=== PATIENT | male | born 1995 | race Caucasian/White ===

== ENCOUNTER 2020-06-06 19:30 | Emergency (ER) | payer OTHER ==
--- OUTSIDE RECORDS SUMMARY | 2020-06-06 19:32 | XMS REPORT | Continuity of Care Document ---
:1995 Author Organization [facility] t Address [address] [place] [address] Care Team Providers Name Role Phone Benitez Muñiz MD. Primary Care Physician Problems This patient has no known problems. Allergies, Adverse Reactions, Alerts This patient has no known allergies or adverse reactions. Family History Family Member Diagnosis Comments Start Date Stop Date Source Natural father No Known Problems Rishabh Madrigal Natural mother No Known Problems Rishabh Madrigal Paternal grandmother Cancer [place] Social History Social Habit Start Date Stop Date Quantity Comments Source Sex Assigned At [place] [facility] Alcohol intake 2016-05-26 2016-05-26 Current drinker [place] 00:00:00 00:00:00 of alcohol (finding) Tobacco Comment 2016-05-26 2016-05-26 Started 16 yo [place] [facility] 00:00:00 00:00:00 and smokes 1 ppd on Fri/Sat Alcohol Comment 2016-05-26 2016-05-26 Fri/Sat 01/11 [place] [facility] 00:00:00 00:00:00 beers each time Smoking Status Start Date Stop Date Source Smoker, current status unknown 2016-05-26 00:00:00 [place] [facility] Medications This patient has no known medications. Procedures This patient has no known procedures. Plan of Care Planned Activity Planned Date Details Comments Source Future Scheduled 2020-03-02 INFLUENZA VACCINE [facility] [facility] Test 00:00:00 [code = INFLUENZA VACCINE] Results This patient has no known results.
--- OUTSIDE RECORDS SUMMARY | 2020-06-06 19:32 | XMS REPORT | Clinical Summary ---
:1995 Author Organization [facility] Address [address] [place] [id number] Care Team Providers Name Role Phone Danita Muñiz MD Primary Care Provider Allergies No Known Active Allergies Medications No known medications Active Problems Not on file Medical History Medical History Date Comments Wrist fracture Family History Medical History Relation Name Comments No Known Problems Father No Known Problems Mother Cancer Paternal Grandmother ? tupe Relation Name Status Comments Father Alive Mother Alive Paternal Grandmother Social History Tobacco Use Types Packs/Day Years Used Date Smoker, Current Status Unknown Comments: Started 16 yo and smokes 1 ppd on Fri/Sat Alcohol Use Drinks/Week oz/Week Comments Yes Fri/Sat 6/12 bee rs each time Sex Assigned at Date Recorded Not on file Last Filed Vital Signs Not on file Plan of Treatment Health Maintenance Due Date Last Done Comments INFLUENZA VACCINE 03/02/2020 Results Not on fileafter 06/06/2019 (Home) [address] [place] [address] Advance Directives For more information, please contact: [phone] Type Date 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
--- NOTE | 2020-06-06 21:10 | RAD REPORT ---
EXAM DESCRIPTION: RAD - Hand Right 3 View - 06/06/2020 8:59 pm CLINICAL HISTORY: Pain;Smash injury COMPARISON: No comparisons FINDINGS: Oblique fracture involves the distal shaft of the fifth metacarpal. Moderate adjacent soft tissue swelling.
--- NOTE | 2020-06-06 21:35 | EDPHYS ---
Physician Documentation [facility] Name: Bill Rodriguez Age: 25 yrs Sex: Male : 1995 Arrival Date: 06/06/2020 Time: 19:36 Bed 6 Private MD: ED Physician Lev Mart HPI: 06/06 22:09 This 25 yrs old Male presents to ER via Ambulatory with complaints of Hand snw Injury. 22:09 The patient or guardian reports a contusion, injury, pain, swelling. The complaints snw affect the dorsum of right hand. Context: resulted from a direct blow, pt was playing basketball and someone's elbow struck pt's right hand and pushed his 4th and 5th fingers back.. Onset: The symptoms/episode began/occurred suddenly, just prior to arrival. Associated signs and symptoms: The patient has no apparent associated signs or symptoms. Severity of symptoms: At their worst the symptoms were moderate. The patient has not experienced similar symptoms in the past. It is unknown whether or not the patient has recently seen a physician. Historical: - Allergies: 19:39 No Known Allergies; jd3 - Home Meds: 19:39 None [Active]; jd3 - PMHx: 19:39 None; jd3 - PSHx: 19:39 left arm; jd3 - Immunization history:: Adult Immunizations up to date. - Social history:: Smoking status: Patient denies any tobacco usage or history of. ROS: 22:09 Constitutional: Negative for fever, chills, and weight loss, Eyes: Negative for injury, snw pain, redness, and discharge, ENT: Negative for injury, pain, and discharge, Neck: Negative for injury, pain, and swelling, Cardiovascular: Negative for chest pain, palpitations, and edema, Respiratory: Negative for shortness of breath, cough, wheezing, and pleuritic chest pain, Abdomen/GI: Negative for abdominal pain, nausea, vomiting, diarrhea, and constipation, Back: Negative for injury and pain, : Negative for injury, bleeding, discharge, and swelling, Skin: Negative for injury, rash, and discoloration, Neuro: Negative for headache, weakness, numbness, tingling, and seizure, Psych: Negative for depression, anxiety, suicide ideation, homicidal ideation, and hallucinations. 22:09 MS/extremity: Positive for injury or acute deformity, contusion, pain, swelling, tenderness, of the dorsum of right hand. Exam: 22:08 Constitutional: This is a well developed, well nourished patient who is awake, alert, snw and in no acute distress. Head/Face: Normocephalic, atraumatic. Eyes: Pupils equal round and reactive to light, extra-ocular motions intact. Lids and lashes normal. Conjunctiva and sclera are non-icteric and not injected. Cornea within normal limits. Periorbital areas with no swelling, redness, or edema. ENT: Nares patent. No nasal discharge, no septal abnormalities noted. Tympanic membranes are normal and external auditory canals are clear. Oropharynx with no redness, swelling, or masses, exudates, or evidence of obstruction, uvula midline. Mucous membranes moist. Neck: Trachea midline, no thyromegaly or masses palpated, and no cervical lymphadenopathy. Supple, full range of motion without nuchal rigidity, or vertebral point tenderness. No Meningismus. Chest/axilla: Normal chest wall appearance and motion. Nontender with no deformity. No lesions are appreciated. Cardiovascular: Regular rate and rhythm with a normal S1 and S2. No gallops, murmurs, or rubs. Normal PMI, no JVD. No pulse deficits. Respiratory: Lungs have equal breath sounds bilaterally, clear to auscultation and percussion. No rales, rhonchi or wheezes noted. No increased work of breathing, no retractions or nasal flaring. Abdomen/GI: Soft, non-tender, with normal bowel sounds. No distension or tympany. No guarding or rebound. No evidence of tenderness throughout. Back: No spinal tenderness. No costovertebral tenderness. Full range of motion. Skin: Warm, dry with normal turgor. Normal color with no rashes, no lesions, and no evidence of cellulitis. Neuro: Awake and alert, GCS 15, oriented to person, place, time, and situation. Cranial nerves II-XII grossly intact. Motor strength 5/5 in all extremities. Sensory grossly intact. Cerebellar exam normal. Normal gait. Psych: Awake, alert, with orientation to person, place and time. Behavior, mood, and affect are within normal limits. 22:08 Musculoskeletal/extremity: Extremities: grossly normal except: noted in the dorsum of right hand: contusion, swelling, tenderness, ROM: no acute changes, Circulation is intact in all extremities. Sensation intact. Vital Signs: 19:39 BP 116 / 74; Pulse 80; Resp 17 S; Temp 97.9(TE); Pulse Ox 98% on R/A; Weight 108.86 kg jd3 (R); Height 5 ft. 11 in. (180.34 cm) (R); Pain 7/10; 21:50 BP 120 / 80; Pulse 81; Resp 18; Temp 98; Pulse Ox 100% on R/A; mg2 19:39 Body Mass Index 33.47 (108.86 kg, 180.34 cm) jd3 MDM: 20:[address] [facility] 21:35 Data reviewed: vital signs, nurses notes. Data interpreted: Pulse oximetry: on room air snw is 98 %. Interpretation: normal. Counseling: I had a detailed discussion with the patient and/or guardian regarding: the historical points, exam findings, and any diagnostic results supporting the discharge/admit diagnosis, radiology results, the need for outpatient follow up, to return to the emergency department if symptoms worsen or persist or if there are any questions or concerns that arise at home. Special discussion: Based on the history and exam findings, there is no indication for further emergent testing or inpatient evaluation. I discussed with the patient/guardian the need to see the hand specialist for further evaluation of the symptoms. I discussed with the patient/guardian the need to see the orthopedic surgeon for further evaluation of the symptoms. ED course: declines pain medications in ED. 06/06 19:41 Order name: Hand Right 3 View XRAY; Complete Time: 21:24 snw 06/06 21:26 Order name: Ulnar Gutter splint; Complete Time: 21:48 snw 06/06 21:26 Order name: Ice pack; Complete Time: 21:48 snw Administered Medications: No medications were administered Disposition: 06/07 07:10 Co-signature as Attending Physician, Lev Mart MD I agree with the assessment and [facility] plan of care. Disposition: 06/06/20 21:34 Discharged to Home. Impression: Nondisplaced fracture of shaft of fifth metacarpal bone, right hand. - Condition is Stable. - Discharge Instructions: Cast or Splint Care, Adult, Metacarpal Fracture, RICE for Routine Care of Injuries, How to Use a Sling. - Prescriptions for Mobic 7.5 mg Oral Tablet - take 1 tablet by ORAL route once daily take with food; 20 tablet. - Work release form, Medication Reconciliation Form, Thank You Letter, Antibiotic Education, Prescription Opioid Use form. - Follow up: Emergency Department; When: As needed; Reason: Worsening of condition. Follow up: Braxton Tellez MD; When: 2 - 3 days; Reason: Recheck today's complaints, Continuance of care, Re-evaluation by your physician. Signatures: Dispatcher [employer] EDMS Lev Mart MD MD cha Waters, Shelly, CONSULTANT TECHNOLOGY-C CONSULTANT TECHNOLOGY-Csnw Iggy Mckenzie RN RN Gabino Villareal 4 Corrections: (The following items were deleted from the chart) 06/06 21:48 21:26 Sling ordered. snw ds4 21:58 21:34 06/06/2020 21:34 Discharged to Home. Impression: Nondisplaced fracture of shaft dh4 of fifth metacarpal bone, right hand. Condition is Stable. Forms are Medication Reconciliation Form, Thank You Letter, Antibiotic Education, Prescription Opioid Use. Follow up: Emergency Department; When: As needed; Reason: Worsening of condition. Follow up: Braxton Tellez; When: 2 - 3 days; Reason: Recheck today's complaints, Continuance of care, Re-evaluation by your physician. snw
--- NOTE | 2020-06-06 21:35 | ER ---
Nurse's Notes [facility] Name: Bill Rodriguez Age: 25 yrs Sex: Male : 1995 Arrival Date: 06/06/2020 Time: 19:36 Bed 6 Private MD: Diagnosis: Nondisplaced fracture of shaft of fifth metacarpal bone, right hand Presentation: 06/06 19:37 Chief complaint: Patient states: "I think I broke my hand playing basketball.". jd3 Coronavirus screen: At this time, the client does not indicate any symptoms associated with coronavirus-19. Ebola Screen: Patient negative for fever greater than or equal to 101.5 degrees Fahrenheit, and additional compatible Ebola Virus Disease symptoms. Initial Sepsis Screen: Does the patient meet any 2 criteria? No. Patient's initial sepsis screen is negative. Does the patient have a suspected source of infection? No. Patient's initial sepsis screen is negative. Risk Assessment: Do you want to hurt yourself or someone else? Patient reports no desire to harm self or others. Onset of symptoms was June 06, 2020. 19:37 Method Of Arrival: Ambulatory jd3 19:37 Acuity: RAFFAELE 4 jd3 Triage Assessment: 21:50 General: Appears in no apparent distress. comfortable, Behavior is calm, cooperative. mg2 Injury Description: Deformity sustained to right hand. Historical: - Allergies: 19:39 No Known Allergies; jd3 - Home Meds: 19:39 None [Active]; jd3 - PMHx: 19:39 None; jd3 - PSHx: 19:39 left arm; jd3 - Immunization history:: Adult Immunizations up to date. - Social history:: Smoking status: Patient denies any tobacco usage or history of. Screenin:50 Abuse screen: Denies threats or abuse. Denies injuries from another. Nutritional mg2 screening: No deficits noted. 21:50 Tuberculosis screening: No symptoms or risk factors identified. Fall Risk None mg2 identified. Assessment: 21:50 General: Appears in no apparent distress. comfortable, Behavior is calm, cooperative. mg2 Pain: Complains of pain in right hand. Neuro: Level of Consciousness is awake, alert, obeys commands, Oriented to person, place, time, situation. Cardiovascular: Capillary refill < 3 seconds Patient's skin is warm and dry. Respiratory: Airway is patent Respiratory effort is even, unlabored, Respiratory pattern is regular, symmetrical. GI: No signs and/or symptoms were reported involving the gastrointestinal system. : EENT: No signs and/or symptoms were reported regarding the EENT system. Derm: Skin is intact, is healthy with good turgor, Skin is pink, warm \\T\\ dry. normal. Musculoskeletal: Circulation, motion, and sensation intact. Capillary refill < 3 seconds, Reports pain in right hand. Injury Description: Deformity. Vital Signs: 19:39 BP 116 / 74; Pulse 80; Resp 17 S; Temp 97.9(TE); Pulse Ox 98% on R/A; Weight 108.86 kg jd3 (R); Height 5 ft. 11 in. (180.34 cm) (R); Pain 7/10; 21:50 BP 120 / 80; Pulse 81; Resp 18; Temp 98; Pulse Ox 100% on R/A; mg2 19:39 Body Mass Index 33.47 (108.86 kg, 180.34 cm) jd3 ED Course: 19:36 Patient arrived in ED. ag3 19:38 Triage completed. jd3 19:40 Arm band placed on. jd3 19:41 Melinda Peña FNP-C is PHCP. snw 19:41 Lev Mart MD is Attending Physician. snw 21:00 Hand Right 3 View XRAY In Process Unspecified. EDMS 21:33 Braxton Tellez MD is Referral Physician. snw 21:45 Orthoglass splint: Ulnar gutter/Boxer splint applied on right forearm. ds4 21:50 Patient has correct armband on for positive identification. mg2 21:50 No provider procedures requiring assistance completed. Patient did not have IV access mg2 during this emergency room visit. 21:53 Ry Royal, PRATIBHA is Primary Nurse. mg2 Administered Medications: No medications were administered Outcome: 21:34 Discharge ordered by . snw 21:58 Discharged to home ambulatory, with family. mg2 21:58 Condition: stable 21:58 Discharge instructions given to patient, family, Instructed on discharge instructions, follow up and referral plans. medication usage, Demonstrated understanding of instructions, follow-up care, medications, Prescriptions given X 1. 21:58 Patient left the ED. dh4 Signatures: Dispatcher [employer] EDMS Melinda Peña FNP-C ROAD CONDUCTOR-Csnw Antonio Mckeon ds4 Iggy Mckenzie RN RN jd3 Ry Royal RN RN [facility] Schafer 3 Gabino Cevallos 4 Corrections: (The following items were deleted from the chart) 19:41 19:39 Pulse 80bpm; Resp 17bpm; Spontaneous; Pulse Ox 98% RA; Temp 97.9F Temporal; jd3 108.86 kg Reported; Height 5 ft. 11 in. Reported; BMI: 33.4; Pain 7/10; jd3
[2020-06-07 01:29] VITALS: BP 116/74; TEMP 97.9; O2SAT 98
== END 2020-06-06 21:58 | disposition home or self-care (01) ==
LOC: ER 19:30
PROC: 2W3CX1Z Immobilization of Right Lower Arm using Splint (ICD-10-PCS; principal; 2020-06-06)
DX: S62.356A Nondisplaced fracture of shaft of fifth metacarpal bone, right hand, initial encounter for closed fracture (principal); W21.03XA Struck by baseball, initial encounter; Y93.64 Activity, baseball; Y92.9 Unspecified place or not applicable
CPT/HCPCS: 99283